=== PATIENT | female | born 1965 | race Caucasian/White ===

== ENCOUNTER 2019-02-05 15:37 | Outpatient (REF) | payer OTHER, SELFPAY ==
--- NOTE | 2019-02-05 14:30 | PAPFT_PTH ---
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
[2019-02-13 19:26] LABS: HPV High Risk type 16, PCR Negative (Negative); HPV High Risk type 18, PCR Negative (Negative); HPV other High Risk types, PCR Negative (Negative); Specimen Source VAGINAL
== END 2019-02-05 15:57 ==
LOC: LBN 15:37
PROVIDERS: PCP Family Medicine; Visit Provider Nurse Practitioner Family
DX: Z12.4 Encounter for screening for malignant neoplasm of cervix (principal); Z11.51 Encounter for screening for human papillomavirus (HPV); Z90.711 Acquired absence of uterus with remaining cervical stump
CPT/HCPCS: 87624; 88142

== ENCOUNTER 2019-03-18 12:21 | Outpatient (REF) | payer OTHER, SELFPAY ==
--- NOTE | 2019-03-18 10:00 | SKI_PTH ---
PATIENT: Paula Portillo LOC: [facility] U#:[id number] AGE/SX: 54/F ROOM: RE03/18/[address]: Lexii Ruiz APRN : 1965 BED: DIS: 03/18/2019 SPEC #: [id number] RECD: 03/18/19 12:56 STATUS: DANIELA REJackson #: [id number] [place]: 03/18/19 10:[address]: Lexii Ruiz DEPT: Surgical Specimen RECD BY: Divya Campbell Tissues: 1 - SKIN BIOPSY(SHAVE/PUNCH) Procedures: SKIN LEVEL 4 Comments: [id number]
== END 2019-03-18 12:41 ==
LOC: LBN 12:21
PROVIDERS: PCP Family Medicine
DX: L91.0 Hypertrophic scar (principal)
CPT/HCPCS: 88305

== ENCOUNTER 2019-03-19 00:37 | Outpatient (CLI) | payer OTHER, SELFPAY ==
--- NOTE | 2019-03-19 13:54 | DI.MAMMO_ITS ---
SYMPTOMS/DIAGNOSIS: PERSONAL HX BREAST CA, SCREENING, Z12.31 MAMMOGRAM: Mammograms were interpreted according to the usual protocol including computer analysis with CAD system, tomosynthesis and C view imaging. Comparison with prior examinations. The breast is status post left mastectomy. Breast density A. No suspicious masses or microcalcifications are seen. There has been no significant change compared to the prior examinations. IMPRESSION: No evidence for malignancy. Yearly mammography is recommended. Category I. The findings were discussed with the patient on the date of the examination. SA ASSESSMENT OF FINDINGS: Negative. Category 1. Patient will receive a letter notifying them of these results. BI-RAD category A. The breasts are almost entirely fatty.
== END 2019-03-19 00:57 ==
PROVIDERS: PCP Family Medicine; Visit Provider Nurse Practitioner Family
DX: Z12.31 Encounter for screening mammogram for malignant neoplasm of breast (principal); Z85.3 Personal history of malignant neoplasm of breast; Z90.12 Acquired absence of left breast and nipple
CPT/HCPCS: 77063; 77067

== ENCOUNTER 2019-03-20 01:34 | Outpatient (CLI) | payer OTHER, SELFPAY ==
[2019-03-20 10:31] LABS: ALT 25 U/L (12-78); AST 15 U/L (15-37); Albumin 3.8 g/dL (3.4-5.0); Alkaline Phosphatase 115 U/L (46-116); BUN 16 mg/dL (7-18); Bilirubin, Total 0.3 mg/dL (0.2-1.0); CREATININE 0.82 mg/dL (0.55-1.02); Calcium 9.1 mg/dL (8.5-10.1); Calculated LDL 167 mg/dL; Chloride 104 mmol/L (98-107); Cholesterol 230 mg/dL (50-200); Glucose 106 mg/dL (70-100); HDL Cholesterol 33 mg/dL (40-60); Potassium 4.2 mmol/L (3.5-5.1); Sodium 141 mmol/L (136-145); Total Protein 7.5 g/dL (6.4-8.2); Triglyceride 152 mg/dL (30-150)
== END 2019-03-20 01:54 ==
PROVIDERS: PCP Family Medicine
DX: E78.5 Hyperlipidemia, unspecified (principal); Z00.00 Encounter for general adult medical examination without abnormal findings
CPT/HCPCS: 36415; 80053; 80061; 83721

== ENCOUNTER 2019-08-14 10:21 | Outpatient (CLI) | payer OTHER, SELFPAY ==
--- NOTE | 2019-08-14 10:22 | DI.RAD_ITS ---
EXAM: XR ELBOW RT COMPLETE INDICATION: pain. COMPARISON: No exams were available for comparison TECHNIQUE: 2D digital imaging was performed. FINDINGS: No fracture or joint effusion is seen. The joint spaces are well maintained. No tendon or joint spa ce calcifications are seen. IMPRESSION: Negative right elbow.
--- NOTE | 2019-08-14 10:22 | DI.RAD_ITS ---
EXAM: XR FOREARM RT INDICATION: pain. COMPARISON: No exams were available for comparison TECHNIQUE: 2D digital imaging was performed. FINDINGS: No fracture or dislocation is seen. The wrist and elbow are unremarkable as visualized. IMPRESSION: Negative right forearm.
== END 2019-08-14 10:41 ==
PROVIDERS: PCP Family Medicine; Visit Provider Orthopaedic Surgery
DX: M79.631 Pain in right forearm (principal); M25.521 Pain in right elbow
CPT/HCPCS: 73080; 73090

== ENCOUNTER 2019-10-25 04:24 | Outpatient (CLI) | payer OTHER, SELFPAY ==
--- NOTE | 2019-10-25 11:15 | DI.RAD_ITS ---
EXAM: XR RIBS LT W PA LAT CHEST INDICATION: palpable tender area L anterior chest, rib 1-2, R07.89 CHEST PAIN, Z85.3. COMPARISON: CHEST 2 VIEWS PA,LAT from 05/13/2014 TECHNIQUE: 2D digital imaging was performed. FINDINGS: The heart size is normal. The lungs appear clear. No pneumothorax is seen. Left axillary clips are noted. No rib fracture is identified. There is no gross evidence of a lytic or blastic lesion. Th e spine shows no evidence of compression fractures. There are mild degenerative changes of AC joint glenoid IMPRESSION: No acute abnormality. DATA REPOSITORY: RADIATION DOSE DELIVERED:
== END 2019-10-25 04:44 ==
DX: R07.89 Other chest pain (principal); Z85.3 Personal history of malignant neoplasm of breast
CPT/HCPCS: 71046; 71100

== ENCOUNTER 2020-03-31 01:39 | Outpatient (CLI) | payer OTHER, SELFPAY ==
[2020-03-31 08:49] LABS: Hemoglobin A1C 5.8 % (3.8-5.6)
[2020-03-31 09:25] LABS: ALT 24 U/L (14-59); AST 16 U/L (15-37); Albumin 3.9 g/dL (3.4-5.0); Alkaline Phosphatase 93 U/L (46-116); Anion Gap 10.5 mmol/L (3-11); BUN 16 mg/dL (7-18); Bilirubin, Total 0.3 mg/dL (0.2-1.0); CO2 26.5 mmol/L (21.0-32.0); CREATININE 0.83 mg/dL (0.55-1.02); Calculated LDL 153 mg/dL (<100); Chloride 106 mmol/L (98-107); Cholesterol 217 mg/dL (<200); Glucose 94 mg/dL (74-106); HDL Cholesterol 41 mg/dL (40-60); Potassium 4.1 mmol/L (3.5-5.1); Sodium 143 mmol/L (136-145); Total Protein 7.2 g/dL (6.4-8.2); Triglyceride 119 mg/dL (<150)
== END 2020-03-31 01:59 ==
DX: E03.9 Hypothyroidism, unspecified (principal); F32.9 Major depressive disorder, single episode, unspecified; R03.0 Elevated blood-pressure reading, without diagnosis of hypertension; R63.8 Other symptoms and signs concerning food and fluid intake; E78.5 Hyperlipidemia, unspecified
CPT/HCPCS: 36415; 80053; 80061; 83036

== ENCOUNTER 2020-05-01 04:03 | Outpatient (CLI) | payer OTHER, SELFPAY ==
--- NOTE | 2020-05-01 13:43 | DI.MAMMO_ITS ---
EXAM: MG MAMMO SCREENING 60 MIN DUR CLINICAL HISTORY: breast cancer screening, HX BREAST CA, Z85.3, Z12.39 TECHNIQUE: Bilateral full field digital CC and MLO mammographic images were obtained with 3D tomosyn thesis and utilizing computer aided detection (CAD). COMPARISON: Available for comparison. FINDINGS: Patient is status post left mastectomy. Masses/Architectural Distortion: None seen. Stable asymmetric breast tissue in the upper-outer quadra nt of the right breast. Microcalcifications: No suspicious pleomorphic-type are seen. Skin Thickening/Nipple Retraction: None. IMPRESSION: 1. No significant interval change with no specific features of malignancy noted. 2. Unless there is more urgent need, screening mammography is recommended, as per [employer] guidelines. BI-RADS Category 2 - Benign Findings Breast Density - Category B - Scattered areas of fibroglandular density A negative radiographic report should not delay biopsy if a dominant or clinically suspicious mass is present. Up to ten percent of cancers are not identified on mammography. A negative report may reinforce clinical impression. Adenosis and dense breasts may obscure an underlying neoplasm. False positive reports average 6 to 10%. Patient will receive a letter notifying them of these results.
== END 2020-05-01 04:23 ==
DX: Z12.31 Encounter for screening mammogram for malignant neoplasm of breast (principal); Z85.3 Personal history of malignant neoplasm of breast
CPT/HCPCS: 77063; 77067

== ENCOUNTER 2020-05-22 09:07 | Day surgery (SDC) | payer OTHER, SELFPAY ==
[2020-05-22 08:52] VITALS: BP 116/82; PULSE 74; RESP 16; TEMP 36.2; O2SAT 98
[2020-05-22] MEDS: Lactated Ringers 1,000 ML 80 ML IV (09:44)
--- NOTE | 2020-05-22 10:26 | W.PM.DSUDISC ---
Discharge Plan Disposition Patient Disposition: HOME Condition: Good Discharge Details Reason For Visit: Colonoscopy Attending Provider: Dorita Pastrana Primary Care Provider: Lexii Ruiz Home Meds and New Rx's Prescriptions: Continued hydrochlorothiazide 25 mg tablet 25 mg PO QAM Qty: 30 RF: 2 Discharge Instructions Additional Instructions: Findings: Four small colon polyps were removed. My office will send a letter with biopsy results. Follow up: Plan for colonoscopy in 3-5 years depending on the biopsy results. Please call if you develop: fevers >101.5 Nausea or Vomiting Abdominal pain that is not transient DAY SURGERY UNIT POST COLONOSCOPY INSTRUCTIONS 1. Because there will be medication in your system for the next 24 hours, you may feel a little sleepy. Your coordination will be affected. Therefore: a. Do not drive or operate dangerous equipment for 24 hours. b. Do not drink alcohol beverages for 24 hours (not even beer). c. Plan to go home and rest for the day. 2. Generally there are no restrictions on your activity after a day or so has gone by, but you may feel a bit fatigued for a few days. 3 After you arrive home you may have a light meal and return to a normal diet as you can tolerate it without feeling sick to your stomach. 4. After surgery, you may feel pain or discomfort. This should be only transient, but if it persists please contact your doctor. 5. If there are any questions regarding the findings of your procedure, please feel free to contact your doctor. 6. If you are unable to contact your doctor with a problem, contact the hospital at [phone]. 7. Continue all your regular medications unless directed otherwise. I understand the above instructions and have no questions. Signature of Patient or Responsible Adult Escort Date/Time Name of Responsible Adult Escort Signature of Nurse Date/Time Activity:: Activity as Tolerated Diet:: As Tolerated Discharge Orders Discharge Orders: Discharge Order (Routine); Ordered 05/22/20 Ordered By: Dorita Pastrana DS: Diagnosis Discharge Diagnosis (1) Colon polyps: Status: Acute
--- NOTE | 2020-05-22 10:27 | W.COLOREPORT ---
Date of service: 05/22/20 Time of Service: 11:23 Colonoscopy Report Date of procedure: 05/22/20 Pre-op diagnosis general: History of colon polyps Post-op diagnosis procedure note: other (Colon polyps) Procedure: Colonoscopy with cold forceps and snare polypectomy Surgeon: Dorita Pastrana Anesthesia proc note operative: MAC Indications: This 55 year old woman had a tubular adenoma removed in 2014 and presents for follow up colonoscopy. No symptoms. FH unknown due to adoption. Procedure Description: The patient was placed in the left Benjamin position. Propofol was titrated to sedation. Digital rectal examination revealed no abnormalities. The scope was advanced to the cecum without difficulty. The ileocecal valve and appendiceal orifice were clearly identified. The prep was good. A diminuitive polyp near the appendiceal orifice was removed with the cold forceps. The scope was slowly withdrawn over the course of greater than 6 minutes with a less than 1cm polyp in the ascending colon removed with the cold forceps. No abnormalities were seen in the transverse or descending colon. In the sigmoid a less than 1cm polyp was removed with the hot snare. A flat less than 1cm polyp was removed from the rectum. The patient tolerated the procedure well and was stable to recovery. A follow up colonoscopy is indicated in 3-5 years pending biopsy results.
--- NOTE | 2020-05-22 10:48 | BOWEL_PTH ---
PATIENT: Paula Portillo LOC: [facility] U#:[id number] AGE/SX: 55/F ROOM: RE05/22/[address]: Dorita Pastrana MD : 1965 BED: DIS: 05/22/2020 SPEC #: [id number] RECD: 05/22/20 12:31 STATUS: DANIELA REJackson #: [id number] [place]: 05/22/20 10:[address]: Dorita Pastrana DEPT: Surgical Specimen RECD BY: Adeola Perkins ENTERED: 05/22/20 12:32 SP TYPE: Bowel OTHR DR: Lexii Ruiz APRN Tissues: 1 - BIOPSY BOWEL 2 - BIOPSY BOWEL 3 - BIOPSY BOWEL 4 - BIOPSY BOWEL Procedures: GROSS AND MICRO LEVEL 4 Comments: [id number]
[2020-05-22 11:50] VITALS: BP 126/76; PULSE 72; RESP 16; TEMP 36.6; O2SAT 96
== END 2020-05-22 12:07 | disposition home or self-care (01) ==
PROVIDERS: Visit Provider Surgery
PROC: 0DJD8ZZ Inspection of Lower Intestinal Tract, Via Natural or Artificial Opening Endoscopic (ICD-10-PCS; CPT 45378; principal; 2020-05-22 10:15)
DX: Z12.11 Encounter for screening for malignant neoplasm of colon (principal); D12.2 Benign neoplasm of ascending colon; D12.0 Benign neoplasm of cecum; D12.5 Benign neoplasm of sigmoid colon; D12.8 Benign neoplasm of rectum; Z86.010 Personal history of colon polyps; I10 Essential (primary) hypertension
CPT/HCPCS: 45385; 45380; 88305; J2001

== ENCOUNTER 2020-12-14 02:46 | Outpatient (CLI) | payer OTHER, SELFPAY ==
[2020-12-14 11:27] LABS: Source Nasal/Nares
[2020-12-14 13:23] LABS: COVID-19 PCR Negative (Negative)
== END 2020-12-14 02:47 | disposition home or self-care (01) ==
LOC: LBO 02:47
PROVIDERS: Visit Provider Surgery
DX: Z20.822 Contact with and (suspected) exposure to COVID-19 (principal); Z01.818 Encounter for other preprocedural examination
CPT/HCPCS: 87635

== ENCOUNTER 2020-12-15 12:26 | Day surgery (SDC) | payer OTHER, SELFPAY ==
[2020-12-15 12:36] VITALS: BP 106/71; PULSE 79; RESP 16; TEMP 36.6; O2SAT 98
[2020-12-15] MEDS: Lactated Ringers 1,000 ML 80 ML IV (13:00)
--- NOTE | 2020-12-15 14:30 | BOWEL_PTH ---
PATIENT: Paula Portillo LOC: [facility] U#:[id number] AGE/SX: 55/F ROOM: RE12/15/[address]: Marielena Morgan : 1965 BED: DIS: 12/15/2020 SPEC #: [id number] RECD: 12/15/20 18:20 STATUS: DANIELA RE #: [id number] [place]: 12/15/20 14:[address]: Marielena Morgan DEPT: Surgical Specimen RECD BY: Adeola Perkins ENTERED: 12/15/20 18:21 SP TYPE: Bowel OTHR DR: Lexii Ruiz APRN Tissues: 1 - BIOPSY BOWEL 2 - BIOPSY BOWEL Procedures: GROSS AND MICRO LEVEL 4 Comments: [id number]
--- NOTE | 2020-12-15 15:06 | W.COLOREPORT ---
Date of service: 12/15/20 Time of Service: 15:06 Colonoscopy Report Date of procedure: 12/15/20 Pre-op diagnosis general: serrrated polyps/CIS of polyp Post-op diagnosis procedure note: same Anesthesia Type: General:No Airway Estimated blood loss (mL): 2 Pathology: other Complications: None Disposition: same day Prep: Miralax/Dulcolax Retraction Time: 20 Procedure Description: After informed consent was obtained the patient was taken to the procedure room and placed in a left decubitous position. Monitors were applied and a time out was done. The patients name, date of , procedure, allergies to medications and metal in their body was reviewed. The patient was then sedated. Once sedated and comfortable a rectal exam was done. External exam was normal. Internal exam revealed a normal sphincter tone and no palpable masses. The scope was then introduced and retrofelexed. No internal hemorrhoids were identified. The scope was then advanced to the cecum w/out difficulty. The TI and appendiceal orifice were identified. The prep was good. The scope was then slowly retracted over 20 minutes back into the rectum. The scope was removed and the patient was woken up and taken back to Same day surgery in stable condition. She had x2 polypts that were removed w/ a hot polypectomy forcept. Both of these had the appearance of adenomas under NBI. One was at 70cm. This is removed w/ a hot forcept in multiple bites, all specimen retrieved ad no bleeding noted. The second polyp was at 40cm. This was flat and removed w/ a hot forcept. An Endo- clip was placed across the defect. Minor diverituclar Dx noted, this is confined to the sigmoid colon. No sign of recurrent polyps in rectum. The scope was removed and the patient was woken up and taken back to Same day surgery in stable condition. The patient tolerated the procedure well and there were no immediate complications. Follow up: The patient should follow up in 6m, unless they develop changes in bowel habits or other new gastrointestinal complaints.
[2020-12-15 15:29] VITALS: BP 108/64; PULSE 64; RESP 16; TEMP 36.1; O2SAT 99
--- NOTE | 2020-12-15 15:48 | W.PM.DSUDISC ---
Discharge Plan Disposition Patient Disposition: HOME Condition: Good Discharge Details Reason For Visit: colon scope Attending Provider: Marielena Morgan Primary Care Provider: Lexii Ruiz Home Meds and New Rx's Prescriptions: Continued hydrochlorothiazide 25 mg tablet 25 mg PO QAM Qty: 90 RF: 4 losartan 50 mg tablet 50 mg PO BID Qty: 180 RF: 3 Discontinued bisacodyl [Dulcolax (bisacodyl)] 5 mg tablet,delayed release (DR/EC) 5 mg PO ONCE Qty: 4 RF: 0 polyethylene glycol 3350 17 gram/dose powder 238 g PO ONCE Qty: 238 RF: 0 Discharge Instructions Additional Instructions: Findings: x2 new polyps -No signs of recurrence of the polyp that had cancer in it. -will send a letter in 3 wks w/ results of the polyp pathology -no Advil/aspirin/Naprosyn for 5 days. Follow up: repeat colon scope May 2021 Please call if you develop: fevers >101.5 Nausea or Vomiting Abdominal pain that is not transient DAY SURGERY UNIT POST COLONOSCOPY INSTRUCTIONS 1. Because there will be medication in your system for the next 24 hours, you may feel a little sleepy. Your coordination will be affected. Therefore: a. Do not drive or operate dangerous equipment for 24 hours. b. Do not drink alcohol beverages for 24 hours (not even beer). c. Plan to go home and rest for the day. 2. Generally there are no restrictions on your activity after a day or so has gone by, but you may feel a bit fatigued for a few days. 3 After you arrive home you may have a light meal and return to a normal diet as you can tolerate it without feeling sick to your stomach. 4. After surgery, you may feel pain or discomfort. This should be only transient, but if it persists please contact your doctor. 5. If there are any questions regarding the findings of your procedure, please feel free to contact your doctor. 6. If you are unable to contact your doctor with a problem, contact the hospital at [phone]. 7. Continue all your regular medications unless directed otherwise. I understand the above instructions and have no questions. 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
[2020-12-15 15:51] VITALS: BP 110/68; PULSE 63; RESP 16; TEMP 36.3; O2SAT 100
== END 2020-12-15 16:10 | disposition home or self-care (01) ==
PROVIDERS: Visit Provider Surgery
PROC: 0DJD8ZZ Inspection of Lower Intestinal Tract, Via Natural or Artificial Opening Endoscopic (ICD-10-PCS; CPT 45378; principal; 2020-12-15 12:30)
DX: Z12.11 Encounter for screening for malignant neoplasm of colon (principal); D12.6 Benign neoplasm of colon, unspecified; Z86.010 Personal history of colon polyps; K57.30 Diverticulosis of large intestine without perforation or abscess without bleeding
CPT/HCPCS: 45384; 88305; J2001

== ENCOUNTER 2021-04-21 03:03 | Outpatient (CLI) | payer OTHER, SELFPAY ==
[2021-04-21 08:27] LABS: ALT 25 U/L (14-59); AST 14 U/L (15-37); Albumin 4.1 g/dL (3.4-5.0); Alkaline Phosphatase 93 U/L (46-116); Anion Gap 10.5 mmol/L (3-11); BUN 29 mg/dL (7-18); Bilirubin, Total 0.3 mg/dL (0.2-1.0); CO2 29.5 mmol/L (21.0-32.0); CREATININE 0.9 mg/dL (0.55-1.02); Calcium 9.5 mg/dL (8.5-10.1); Calculated LDL 163 mg/dL (<100); Chloride 101 mmol/L (98-107); Cholesterol 223 mg/dL (<200); Glucose 101 mg/dL (74-106); HDL Cholesterol 44 mg/dL (40-60); Potassium 3.7 mmol/L (3.5-5.1); Sodium 141 mmol/L (136-145); Total Protein 7.6 g/dL (6.4-8.2); Triglyceride 83 mg/dL (<150)
== END 2021-04-21 03:04 | disposition home or self-care (01) ==
LOC: LBO 03:03
DX: Z00.00 Encounter for general adult medical examination without abnormal findings; Z13.220 Encounter for screening for lipoid disorders
CPT/HCPCS: 36415; 80053; 80061

== ENCOUNTER 2021-05-27 02:46 | Outpatient (CLI) | payer OTHER, SELFPAY ==
--- NOTE | 2021-05-27 07:45 | DI.MAMMO_ITS ---
Exam(s) MG MAMMO SCREENING 60 MIN DUR EXAM: MG MAMMO SCREENING 60 MIN DUR CLINICAL HISTORY: breast cancer screening,personal h/o breast ca,z85.3,z12.31. TECHNIQUE: Craniocaudal and mediolateral oblique Full Field Digital Mammography views of the right b reast with Computer Aided Diagnosis followed by Tomosynthesis. COMPARISON: Priors available for comparison. FINDINGS: Mammography/Tomosynthesis: The patient is status post left mastectomy. Masses/Architectural Distortion: None seen. Microcalcifictions: No suspicious pleomorphic-type are seen. Skin Thickening/Nipple Retraction: None. IMPRESSION: 1. No evidence of malignancy is noted. 2. Unless there is more urgent need, follow-up screening mammography is recommended, as per [place] [employer] guidelines. 3. The findings were discussed with the patient on the date of the examination. BI-RADS Category 1 - Negative Breast Density - Category B - Scattered areas of fibroglandular density Breast density Category C or D implies that the patient has dense breast tissue. Dense breast tissue can make it harder to find cancer on a mammogram. Dense breast tissue is also associated with an incr eased risk of breast cancer. This information about the result of the mammogram report was provided to the patient to raise their awareness. Use this report when you speak with the patient about their risks for breast cancer, which includes their family history. At that time, you may recommend additional screening tests (Ultrasoun d or MRI) as these tests may add significant information. A negative radiographic report should not delay biopsy if a dominant or clinically suspicious mass is present. Up to ten percent of cancers are not identified on mammography. A negative report may reinforce clinical impression. Adenosis and dense breasts may obscure an underlying neoplasm. False positive reports average 6 to 10%. Patient will receive a letter notifying them of these results.
--- NOTE | 2021-05-27 09:57 | DI.RAD_ITS ---
Exam(s) XR THUMB RT EXAM: XR THUMB RT CLINICAL HISTORY: right thumb pain and swelling,m79.644. TECHNIQUE: 2D digital imaging was performed of the right finger. Three views were obtained. PA/AP, oblique, and lateral views were obtained. COMPARISON: No exams were available for comparison FINDINGS: BONES: There is a 1.4 mm linear density in the dorsal soft tissues adjacent to the head of the proxim al phalanx of the thumb. This may represent a small avulsed fracture fragment. It is of indetermina te acuity. No other evidence to suggest an acute or healing fracture or dislocation is seen. No bon y destructive lesion is seen. JOINTS: No dislocation present. SOFT TISSUE: Normal. IMPRESSION: 1.4 mm linear density in the soft tissues dorsal to the head of the proximal phalanx of the thumb. T his may represent an avulsed fracture fragment. It is of indeterminate acuity. Please correlate wit h the patient's site of pain. DATA REPOSITORY: RADIATION DOSE DELIVERED:
== END 2021-05-27 03:06 ==
DX: Z12.31 Encounter for screening mammogram for malignant neoplasm of breast (principal); Z85.3 Personal history of malignant neoplasm of breast; M79.644 Pain in right finger(s); M79.9 Soft tissue disorder, unspecified
CPT/HCPCS: 77063; 77067; 73140

== ENCOUNTER 2021-06-15 02:24 | Outpatient (CLI) | payer OTHER, SELFPAY ==
[2021-06-15 14:22] LABS: Source Nasal/Nares
[2021-06-15 18:04] LABS: COVID-19 PCR Negative (Negative)
== END 2021-06-15 02:25 | disposition home or self-care (01) ==
LOC: LBO 02:24
PROVIDERS: Visit Provider Surgery
DX: Z20.822 Contact with and (suspected) exposure to COVID-19 (principal); Z01.818 Encounter for other preprocedural examination
CPT/HCPCS: 87635

== ENCOUNTER 2021-06-18 11:03 | Day surgery (SDC) | payer OTHER, SELFPAY ==
--- NOTE | 2021-06-17 13:35 | W.COLOREPORT ---
Colonoscopy Report Date of procedure: 06/18/21 Pre-op diagnosis general: serrated adenoma 70/40 Post-op diagnosis procedure note: other (moderate diverticula ) Surgeon: Marielena Morgan Anesthesia Type: General:No Airway Estimated blood loss (mL): 0 Pathology: none sent Complications: None Disposition: same day Prep: Miralax/Dulcolax Retraction Time: 7 mins Procedure Description: After informed consent was obtained the patient was taken to the procedure room and placed in a left decubitous position. Monitors were applied and a time out was done. The patients name, date of , procedure, allergies to medications and metal in their body was reviewed. The patient was then sedated. Once sedated and comfortable a rectal exam was done. External exam was normal. Internal exam revealed a normal sphincter tone and no palpable masses. The scope was then introduced and retrofelexed. no internal hemorrhoids were identified. The scope was then advanced to the cecum w/out difficulty. The TI and appendiceal orifice were identified. The prep was good. The scope was then slowly retracted over 7 minutes back into the rectum. There are no polyps visualized today. She does have a minor diverticular disease confined to the sigmoid colon. There is no signs of bleeding or infection. At 40 cm she still has a clip across the defect from the previous polypectomy. There is no signs of any recurrent polyp disease visualized today. The scope was removed and the patient was woken up and taken back to Same day surgery in stable condition. The patient tolerated the procedure well and there were no immediate complications. Follow up: The patient should follow up in 2 years unless they develop changes in bowel habits or other new gastrointestinal complaints.
--- NOTE | 2021-06-17 13:37 | PDOC.DSDIS_ITS ---
Discharge Plan Disposition Patient Disposition: HOME Condition: Good Discharge Details Reason For Visit: colon scope Attending Provider: Marielena Morgan Primary Care Provider: Lexii Ruiz Home Meds and New Rx's Prescriptions: No Action hydrochlorothiazide 25 mg tablet 25 mg PO QAM Qty: 90 RF: 4 losartan 50 mg tablet 50 mg PO BID Qty: 180 RF: 3 Discharge Instructions Additional Instructions: DSU Colonoscopy Post- Op Instructions Instructions for Everyone who is given Anesthesia: For your safety, please do the following for the next twenty-four (24) hours: *Do Not operate a motor vehicle (car, truck, motorcycle, etc.) *Do Not drink alcoholic beverages or use any recreational drugs for the first 24 hours or while taking pain medications. The medications in your body may have a reaction that can be dangerous. *Do Not make any important decisions or sign any important papers. Findings:no polyps diverticula- see handout Follow up:Repeat scope in 2 yrs time. 1. No lifting over 20 pounds or strenuous activity for the first 24 hours after your procedure. After 24 hours there are no restrictions on your activity but you may feel fatigued for a few days. 2. After you arrive home you may have a light meal and return to your normal diet as you can tolerate it without feeling sick to your stomach. 3. You may have a bloated, gaseous feeling in your belly (abdomen) after a colonoscopy. Passing gas and belching will help. Walking or lying down on your left side with your knees flexed may relieve the discomfort. Call the office at [phone] (Office) or [phone] (Hospital) right away if you notice any of the following: a.Vomiting of blood or ?coffee ground stools?. b.Rectal bleeding 1Tbsp, blood clots or continuous bleeding. c.Severe belly (abdominal) pain. d.A hard distended belly (abdomen) and an inability to pass gas. 4. Please don?t expect to have a normal BM (bowel movement) for 2-3 days after your procedure. 5. If there are questions regarding the findings of your procedure, please contact your doctor 6. If you are unable to contact your doctor with a problem, contact the hospital at [phone]. 7. Continue all your regular medications unless directed otherwise. I understand the above instructions and have no questions. Signature of Patient or Adult Escort Name of Responsible Adult Escort Signature of Nurse Date/Time Activity:: see above Diet:: see above Discharge Orders Discharge Orders: Discharge Order (Routine); Ordered 06/17/21 Ordered By: Marielena Morgan DS: Diagnosis Discharge Diagnosis (1) Serrated adenoma of colon: Status: Acute
[2021-06-18 11:16] VITALS: BP 119/86; PULSE 70; RESP 16; TEMP 36.7; O2SAT 98
--- NOTE | 2021-06-18 11:25 | ANES.PREOP_ITS ---
General Info Date of Service Date Performed: 06/18/21 Height: 5 ft 1 in Weight: 71.7 kg Body Mass Index (BMI): 29.8 Surgical Procedure: Operation Date: 06/18/21 11:35 Proposed Procedures Side Surgeon p Colonoscopy Marielena Morgan, Meds Allergies and Home Medications Allergies Allergy/AdvReac Type Severity Reaction Status Date / Time No Known Drug Allergies Allergy Verified 06/18/21 11:15 Home Medication Medication Instructions Recorded hydrochlorothiazide 25 mg tablet 25 mg PO QAM #90 tab 10/20/20 losartan 50 mg tablet 50 mg PO BID #180 tab 10/25/20 Current Visit Medications: Current Medications Generic Name Dose Route Start Last Admin Trade Name Freq PRN Reason Stop Dose Admin Ringer's Solution 1,000 mls @ 80 mls/hr 06/18/21 06:00 IV 07/17/21 23:59 INFUSION ELY IV Miscellaneous Supplies 1 each 06/18/21 06:00 Iv Access IV 07/17/21 23:59 DIRECTED ELY Sodium Chloride 0 ml 06/18/21 06:00 Normal Saline Flush 10 Ml Syr IV 07/17/21 23:59 PRN PRN Sodium Chloride 0 ml 06/18/21 06:00 Normal Saline 10 Ml Vial IJ 07/17/21 23:59 DIRECTED PRN Sterile Water 0 ml 06/18/21 06:00 Water,Injection,Sterile 10 Ml Vial IJ 07/17/21 23:59 DIRECTED PRN PFSH Active Problems Active Problems: Problem Status Onset Code Internal derangement of elbow M24.9 Colon polyps K63.5 Serrated adenoma of colon ~11/2020 D12.6 Tubular adenoma ~05/22/20 D36.9 Screening cholesterol level Z13.220 History of cervical dysplasia Z87.410 GERD (gastroesophageal reflux disease) K21.9 Pain, dental K08.89 Essential hypertension I10 Hyperlipidemia E78.5 Depression F32.9 Costochondritis M94.0 Tear of right biceps muscle 08/11/19 S46.211A Increased body mass index (BMI) R63.8 Skin lesion L98.9 Acquired absence of both cervix and uterus 07/13/15 Z90.710 Personal history of breast cancer 12/29/16 Z85.3 Tubular adenoma 07/28/15 D36.9 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 F/U recommendations are HPV Q2 years and PAP Q1 year Surgical History Surgical History Acquired absence of both cervix and uterus (07/13/15) 2004 - Bilateral oophrectomy after recurrance of breast Ca 2010 Hyst for persistent KIMMIE II Breast, Lumpectomy (~1999) Left - breast Ca Breast, Mastectomy (~2003) with reconstruction after recurrence of L Breast Ca Cryocautery ablation of VAIN II 06/2015 History of colonoscopy (~12/15/20) Hx of appendectomy Hysterectomy, Laproscopic (~2010) for abn paps Oophrectomy, Both (~2004) prophylactic after Breast Ca Tobacco Smoking/Tobacco Use Status: Never Passive smoking exposure: Yes Second hand exposure: Yes Alcohol Alcohol Intake: current Alcohol intake frequency: a few times a month Alcohol type: hard liquor Substance Use Substance use: Never Substance use type: does not use Prental History History 3 Para 3 Hx # Term Pregnancies Multiple births Hx # Pregnancies Ectopic pregnancies AB induced Hx Number of Living Children AB spontaneous Vital Signs and Lab Results Vital Signs Most Recent Vital Signs in EMR: Most Recent Vital Signs Temp Pulse Resp BP Pulse Ox 36.7 C 70 16 119/86 98 06/18/21 11:16 06/18/21 11:16 06/18/21 11:16 06/18/21 11:16 06/18/21 11:16 Lab Results Blood Type / Crossmatch: No Data to Display Complete Blood Count: No Data to Display Complete Metabolic Panel: No Data to Display Liver Function Panel: No Data to Display Coagulation Panel: No Data to Display Cardiac Panel: No Data to Display Arterial Blood Gas: No Data to Display Venous Blood Gas: No Data to Display Pancreas Panel: No Data to Display Thyroid Panel: No Data to Display Infectious Disease: Coronavirus (COVID-19)(PCR) Negative (Negative) 06/15/21 11:18 06/15/21 Coronavirus 2019 Source Nasal/Nares 06/15/21 11:18 06/15/21 Blood Cultures: No Data to Display Toxicology Panel: No Data to Display Anesthesia Assessment and Plan Anesthesia History Personal History: No History of Anesthesia Complications Family History: No Family History of Anesthesia Complications Exercise Tolerance Exercise Tolerance: Metabolic Equivalents>4 Pertinent Negatives Pertinent Negatives: No Symptoms of GERD, No Major Cardiovascular Symptoms or Complaints, No Major Pulmonary Symptoms or Complaints and No History of CVA/TIA Cardiac & Pulmonary Exam Cardiac Exam: Normal S1/S2 Heart Sounds Pulmonary Exam: Clear Bilateral Breath Sounds Airway Exam Known Difficult Airway: No Mallampati Class: 2 Mouth Opening: Normal (> 3cm) Thyromental Distance: Greater than 3 cm Neck Range of Motion: Full ROM Neck Circumference: Normal Teeth Condition: Normal Dentition ASA Classification ASA Score: ASA 2 Emergency Case?: No NPO Status NPO Status: NPO Clears >2 hours, Solids >8 hours Anesthesia Plan Resuscitation Status: Full Code Anesthesia Technique: General Anesthesia Airway Planned: Natural Airway Monitors Used: Standard Monitors
[2021-06-18 11:31] VITALS: BMI 29.8
[2021-06-18] MEDS: Lactated Ringers 1,000 ML 80 ML IV (11:34)
[2021-06-18 12:14] VITALS: BP 89/70; PULSE 81; RESP 18; TEMP 36; O2SAT 97
--- NOTE | 2021-06-18 12:40 | W.ANESPOSTOP ---
Postoperative Evaluation Date, Time and Location Date Performed: 06/18/21 Time Performed: 12:15 Patient Location: Day Surgery Unit Vital Signs Most Recent Imported Vital Signs: Most Recent Vital Signs Temp Pulse Resp BP Pulse Ox 36.0 C L 81 18 89/70 L 97 06/18/21 12:14 06/18/21 12:14 06/18/21 12:14 06/18/21 12:14 06/18/21 12:14 Pain Score Most Recent Pain Score: Most Recent Pain Score Pain Level 0 06/18/21 12:14 Assessment Mental Status: Awake (Alert & Oriented to Patient Baseline) Airway and Respiratory Function: Patent airway with normal (patient baseline) respiratory exam Cardiovascular Function: Hemodynamically Stable Hydration Status: Adequately Hydrated Nausea & Vomiting: No Nausea or Vomiting Pain: Pt. Denies Any Pain Peripheral Nerve Block: Patient did not receive a nerve block
[2021-06-18 12:43] VITALS: BP 135/83; PULSE 65; RESP 16; TEMP 36.3; O2SAT 97
== END 2021-06-18 13:07 | disposition home or self-care (01) ==
PROVIDERS: Visit Provider Surgery
PROC: 0DJD8ZZ Inspection of Lower Intestinal Tract, Via Natural or Artificial Opening Endoscopic (ICD-10-PCS; CPT 45378; principal; 2021-06-18 11:30)
DX: Z09 Encounter for follow-up examination after completed treatment for conditions other than malignant neoplasm (principal); Z86.010 Personal history of colon polyps; K57.30 Diverticulosis of large intestine without perforation or abscess without bleeding; K21.9 Gastro-esophageal reflux disease without esophagitis; Z85.3 Personal history of malignant neoplasm of breast
CPT/HCPCS: 45378; J2001

== ENCOUNTER 2021-10-19 15:24 | Outpatient (CLI) | payer OTHER, SELFPAY ==
--- NOTE | 2021-10-19 14:29 | DI.RAD_ITS ---
Exam(s) XR RIBS LT W PA LAT CHEST EXAM: XR RIBS LT W PA LAT CHEST CLINICAL HISTORY: Rib pain, pleurodynia, s/p fall, R07.81, W19.XXXA TECHNIQUE: COMPARISON: CR XR RIBS LT W PA LAT CHEST from 10/25/2019 FINDINGS: PA and lateral chest and 4 additional views of the left ribs were obtained. There are multiple surgi eder clips in the left axilla. The lungs are clear. No pleural effusion seen. No pneumothorax. No rib fracture is seen. IMPRESSION: No evidence of acute process. RADIATION DOSE DELIVERED: Total DLP
== END 2021-10-19 15:44 ==
PROVIDERS: Visit Provider Nurse Practitioner
DX: R07.81 Pleurodynia (principal); W19.XXXA Unspecified fall, initial encounter
CPT/HCPCS: 71046; 71100

== ENCOUNTER 2022-05-17 22:29 | Outpatient (REF) | payer OTHER, SELFPAY ==
[2022-05-19 14:41] LABS: Chlamydia Result Negative (Negative); GC Result Negative (Negative)
== END 2022-05-17 22:30 | disposition home or self-care (01) ==
LOC: LBN 22:29
PROVIDERS: Visit Provider Obstetrics & Gynecology
DX: Z11.3 Encounter for screening for infections with a predominantly sexual mode of transmission (principal)
CPT/HCPCS: 87491; 87591

== ENCOUNTER 2022-11-22 17:25 | Outpatient (REF) | payer OTHER, SELFPAY ==
[2022-11-22 13:02] LABS: Anion Gap 6.5 mmol/L (3-11); BUN 12 mg/dL (7-18); CO2 29.5 mmol/L (21.0-32.0); CREATININE 0.9 mg/dL (0.55-1.02); Chloride 107 mmol/L (98-107); Estimated GFR 74.57 (mL/min/1.73m2); Glucose 103 mg/dL (74-106); Potassium 4.2 mmol/L (3.5-5.1); Sodium 143 mmol/L (136-145)
== END 2022-11-22 17:26 | disposition home or self-care (01) ==
LOC: LBN 17:25
PROVIDERS: PCP Nurse Practitioner Family; Visit Provider Nurse Practitioner Family
DX: I10 Essential (primary) hypertension (principal)
CPT/HCPCS: 80048

== ENCOUNTER 2022-11-30 02:01 | Outpatient (CLI) | payer OTHER, SELFPAY ==
--- NOTE | 2022-11-30 11:03 | DI.MAMMO_ITS ---
Exam(s) MG MAMMO SCREENING 60 MIN DUR EXAM: MG MAMMO SCREENING 60 MIN DUR CLINICAL HISTORY: breast cancer screening,personal h/o breast ca,z12.39,z85.3 TECHNIQUE: Right full field digital CC and MLO mammographic images were obtained with 3D tomosynthes is and utilizing computer aided detection (CAD). COMPARISON: 2014 through 2020 FINDINGS: Masses/Architectural Distortion: None seen. Microcalcifications: No suspicious pleomorphic-type are seen. Skin Thickening/Nipple Retraction: None. IMPRESSION: 1. No significant interval change with no specific features of malignancy noted. 2. Unless there is more urgent need, screening mammography is recommended, as per [place] [employer] guidelines. BI-RADS Category 1 - Negative Breast Density - Category B - Scattered areas of fibroglandular density A negative radiographic report should not delay biopsy if a dominant or clinically suspicious mass is present. Up to ten percent of cancers are not identified on mammography. A negative report may reinforce clinical impression. Adenosis and dense breasts may obscure an underlying neoplasm. False positive reports average 6 to 10%. Patient will receive a letter notifying them of these results.
== END 2022-11-30 02:21 ==
LOC: DI 02:01
PROVIDERS: PCP Nurse Practitioner Family; Visit Provider Nurse Practitioner Family
DX: Z12.31 Encounter for screening mammogram for malignant neoplasm of breast (principal); Z85.3 Personal history of malignant neoplasm of breast
CPT/HCPCS: 77063; 77067

== ENCOUNTER 2023-05-16 13:44 | Outpatient (REF) | payer OTHER, SELFPAY | END 2023-05-16 13:45 | disposition home or self-care (01) | LOC: LBN 13:44 | PROVIDERS: PCP Nurse Practitioner Family; Visit Provider Obstetrics & Gynecology | DX: R30.0 Dysuria (principal) | CPT/HCPCS: 87077; 87086; 87186 ==

== ENCOUNTER 2023-06-13 10:52 | Day surgery (SDC) | payer OTHER, SELFPAY ==
[2023-06-13 11:47] VITALS: BP 142/99; PULSE 85; RESP 16; TEMP 36.7; O2SAT 97
--- NOTE | 2023-06-13 11:57 | PDOC.DSDIS_ITS ---
Date of service: 06/13/23 Time of Service: 11:57 Discharge Plan Disposition Patient Disposition: Home Condition: Good Discharge Details Reason For Visit: colon scope Attending Provider: Marielena Morgan Primary Care Provider: Nick Petersen Home Meds and New Rx's Prescriptions: Continued losartan 50 mg tablet 50 mg PO DAILY Qty: 90 3RF hydrochlorothiazide 25 mg tablet 25 mg PO QAM Qty: 90 3RF mirtazapine 7.5 mg tablet 7.5 mg PO QHS Qty: 90 1RF Discontinued polyethylene glycol 3350 17 gram/dose powder 238 g PO ONCE Qty: 238 0RF Rx Instructions: take per colonoscopy instructions bisacodyl [Dulcolax (bisacodyl)] 5 mg tablet,delayed release (DR/EC) 5 mg PO ONCE Qty: 4 0RF Rx Instructions: take per colonoscopy instructions Discharge Instructions Additional Instructions: DSU Colonoscopy Post- Op Instructions Instructions for Everyone who is given Anesthesia: For your safety, please do the following for the next twenty-four (24) hours: *Do Not operate a motor vehicle (car, truck, motorcycle, etc.) *Do Not drink alcoholic beverages or use any recreational drugs for the first 24 hours or while taking pain medications. The medications in your body may have a reaction that can be dangerous. *Do Not make any important decisions or sign any important papers. Findings.diverticula-.Make sure you are moving your bowels on a regular basis and not straining to go to the bathroom. If you find you are having problems with constipation/straining, then we recommend you start a fiber supplement such as Metamucil, daily Follow up: My office will send you a letter in 2 to 3 weeks time with the results of the pathology and when we want you to repeat the colonoscopy. 1. No lifting over 20 pounds or strenuous activity for the first 24 hours after your procedure. After 24 hours there are no restrictions on your activity but you may feel fatigued for a few days. 2. After you arrive home you may have a light meal and return to your normal diet as you can tolerate it without feeling sick to your stomach. 3. You may have a bloated, gaseous feeling in your belly (abdomen) after a colonoscopy. Passing gas and belching will help. Walking or lying down on your left side with your knees flexed may relieve the discomfort. Call the office at [phone] (Office) or [phone] (Hospital) right away if you notice any of the following: a.Vomiting of blood or ?coffee ground stools?. b.Rectal bleeding 1Tbsp, blood clots or continuous bleeding. c.Severe belly (abdominal) pain. d.A hard distended belly (abdomen) and an inability to pass gas. 4. Please don?t expect to have a normal BM (bowel movement) for 2-3 days after your procedure. 5. If there are questions regarding the findings of your procedure, please contact your doctor 6. If you are unable to contact your doctor with a problem, contact the hospital at [phone]. 7. Continue all your regular medications unless directed otherwise. I understand the above instructions and have no questions. Signature of Patient or Adult Escort Name of Responsible Adult Escort Signature of Nurse Date/Time Starting a Fiber Supplement Dietary fiber is a plant-based nutrient that's necessary for the healthy functioning of your digestive system.? ?In addition to helping your bowels stay regular, it's also useful for maintaining optimum cholesterol and blood sugar levels as well as a healthy weight. Although it's technically a carbohydrate, i t's not the kind that can be broken down into digestible sugars by the body. Instead, fiber travels through your digestive system while bulking and softening your stool?making it easier to pass. It also helps absorb excess blood sugars and cholesterols. The [place] [employer] recommends 30 grams (g) of fiber a day for men, and 25g a day for women. Fiber is found in fruits, vegetables, legumes, and whole grains, and is an important part of the diet. But because many people find it difficult to eat the recommended quantity of 25 to 38 g per day, fiber supplementation can be extremely helpful to ease the symptoms of a variety of digestive discomforts like diarrhea and constipation. Today, many fiber supplements are found on the market containing one of three active ingredients: psyllium, methylcellulose, and polycarbophil Health Benefits If you have diarrhea, supplementing with fiber can bulk up the stool and reduce frequent urges to evacuate the bowel. If you have constipation, fiber supplements can soften your stool and speed up its movement through the colon. To understand how fiber helps relieve symptoms of both diarrhea and constipation, it's important to differentiate between soluble fiber and insoluble fiber. Soluble fiber forms a gel in your colon by absorbing water and retaining it in your stool, which makes bowel movements softer and easier to pass. Insoluble fiber bulks stool up, which also helps it move through your intestines more easily. Thus, fiber can also help you avoid hemorrhoids and anal fissures that can develop when straining to pass a bowel movement. Additionally, supplementing with fiber can be part of a treatment plan for conditions such as irritable bowel syndrome (IBS), various types of inflammatory bowel disease (IBD) like Crohn's disease and ulcerative colitis, as well as diverticulosis . Fiber increases satiety, or fullness, and is thus helpful for those looking to lose weight or maintain a healthy weight. Sufficient fiber intake has also been shown to decrease the risk of certain cancers, heart disease, and diabetes. There is also evidence that enough fiber, when combined with a diet rich in Vi tamin A, has a protective effect against food allergies. Possible Side Effects The potential side effects of fiber supplementation include: * Gas and gas pain * Abdominal bloating * Lowered blood sugar * Diarrhea or constipation (if taken in excess) * Weight loss * Lessened effectiveness of medications and vitamins (if taken at the same time as fiber) -Side effects can sometimes be minimized by starting with a small amount and slowly increasing until stools become softer and more frequent. Because of the way fiber supplements bulk up in the intestinal tract and absorb surrounding materials, they can interfere with the body's ability to assimilate medications, vitamins, and nutrients. For that reason, it's important to consume fiber supplements at least one hour after, or two hours before, taking medications and important vitamins. This can sometimes be minimized by starting with a small amount and slowly increasing until stools become softer and more frequent. Dosage and Preparation Fiber supplements often come in the form of powders meant to be mixed with water or another liquid. They also are available in capsule form, or as additives to foods like crackers, cookies, cereals, and bars. Dosage will vary based on the product and your desired effects. If you are healthy, it's generally recommended to start with a low dose of fiber and build up until you've reached optimum total daily fiber intake?roughly 25g for women and 38g for men?which should also include your dietary sources of fiber What to Look For When shopping for fiber, look closely at the ingredients to discover which form of fiber is used in each commercial brand. Also, if you're avoiding added sugar, salt, flavorings, or dyes, check the label for these common additives. If you're just starting with a fiber supplement, use a low dose and drink plenty of water when you take the supplement and throughout the day.? If you are not used to eating a high fiber diet/taking a supplement, start with about half of the recommended dose.? Always remember to take fiber with 8oz of water.? Continue at this dose for about 2-3 weeks, and then slowly increase up to the full dose arpit ly.? Fiber is a natural product- you can increase the dose to 2-4 times a day as needed to have a formed BM without straining. Increase the dose slowly until you reach either the desired total intake or a specific effect. Psyllium Psyllium is made from the seeds of a plant in the Plantago genus and contains about 70% soluble fiber and 30% insoluble fiber. It helps the stool absorb water and bulks it up, making?it easier to pass. It also breaks down in the gut (a process called fermentation) and becomes a food source for the good bacteria that reside there. Psyllium is used for treating constipation, irritable bowel syndrome (IBS), and diverticulosis. In addition, psyllium may lower cholesterol ?levels and provide some protection from heart disease.? On the downside, psyllium may cause intestinal gas and contains a small number of calories (roughly 20 calories per tablespoon). Psyllium is sold under the brand names Metamucil, Fiberall, Hydrocil, Konsyl, Perdiem, and Serutan. Methylcellulose Methylcellulose is a non-allergenic and non-fermentable fiber created from the cell reyes of plants. Instead of being absorbed by the intestinal tract, methylcellulose pulls in water to create a softer stool. Methylcellulose is often used to treat constipation, diverticulosis, IBS, and some causes of diarrhea. Because it does not ferment, it is less likely than psyllium to cause intestinal gas; however, methylcellulose does not feed healthy gut bacteria the way psyllium does. It can be used fur sewer but it should be noted that, because it can interfere with absorption, methylcellulose should be taken apart from any prescribed medications. Methylcellulose is sold under the brand name Citrucel. What are the best dietary sources of fiber? Whether or not you choose to supplement with fiber, it's still important to include a variety of high-fiber foods in your diet, such as: * Fresh fruit (pears, apples, strawberries, bananas) * Fresh vegetables (broccoli, Brussel sprouts, beets, and carrots) * Legumes (lentils, split peas, kidney beans, chickpeas, black beans, bey beans) * Whole Grains (quinoa, oats, brown rice, millet, barley) * Other food sources of fiber (popcorn, sweet potatoes, and desire) What time of day is best? Different manufacturers may have varying recommendations on when and how frequently to take fiber supplements. You may want to divide your daily dose into two or three portions to reduce bloating and gas that could occur when taking a large dose all at once. To avoid malabsorption, it's important to take medications or vitamins either one hour before, or two hours after, taking fiber supplements. If using a powdered form of fiber, be sure to dissolve it well. No matter what kind of fiber supplement you are using, be sure to drink plenty of water, at least 8ox, unless you are on fluid restrictions. Activity:: See above Diet:: See above Discharge Orders Discharge Orders: Discharge Order (Routine); Ordered 06/13/23 Ordered By: Marielena Morgan DS: Diagnosis Discharge Diagnosis (1) Tubular adenoma: Status: Acute Asessment and Plan: The patient is seen and examined after their colonoscopy.? The patient has been able to pass gas.? They are not having abdominal pain.? They have been able to tolerate liquids and a snack.? They do not have any nausea or vomiting.? They are not having any chest pain or shortness of breath.??? They are not having any rectal bleeding. Their vital signs have been stable-see nursing notes. We discussed findings during their colonoscopy, and any biopsies that were done/polyps that were removed. The patient will be sent a letter with any biopsy results, and when to repeat the colonoscopy.-see discharge instructions. Patient was given explicit instructions to follow-up regarding colonoscopy-refer to discharge instructions.? We reviewed resumption of medications. Patient verbalized understanding and discharged in stable and satisfactory condition- See nursing notes. (2) Personal history of breast cancer: Status: Acute (3) Acquired absence of both cervix and uterus: Status: Acute (4) Hyperlipidemia: Status: Acute (5) Essential hypertension: Status: Acute (6) Serrated adenoma of colon: Status: Acute (7) Tubular adenoma: Status: Acute (8) GERD (gastroesophageal reflux disease): Status: Chronic
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
--- NOTE | 2023-06-13 11:59 | W.COLOREPORT ---
Date of service: 06/13/23 Time of Service: 11:59 Colonoscopy Report Date of procedure: 06/13/23 Pre-op diagnosis general: Advanced adenomas Post-op diagnosis procedure note: same (and diverticula) Surgeon: Marielena Morgan Anesthesia Type: General:No Airway Estimated blood loss (mL): 2 Pathology: other Complications: None Disposition: same day Prep: Miralax/Dulcolax Retraction Time: 19 Procedure Description: After informed consent was obtained the patient was taken to the procedure room and placed in a left decubitous position. Monitors were applied and a time out was done. The patients name, date of , procedure, allergies to medications and metal in their body was reviewed. The patient was then sedated. Once sedated and comfortable a rectal exam was done. External exam was- minor hemorrhoids Internal exam revealed a normal sphincter tone and no palpable masses. The scope was then introduced and retrofelexed. Grade I internal hemorrhoids were identified. The scope was then advanced to the cecum w/out difficulty. The TI and appendiceal orifice were identified. The prep was BBPS 3 in all segments for a total of 9.. The scope was then slowly retracted over 19 minutes back into the rectum. She had a flat .5 cm polyp in the cecum x2, these are both removed with a cold biting forcep. She had a 0.75 cm polyp at 90 cm. This is removed with a cold biting forcep. She had a .5 cm flat polyp at 60 cm. This is removed with a cold biting forcep. All specimen is retrieved and no bleeding is noted. She had a few large mouth diverticula confined to the sigmoid colon. There is no signs of active bleeding or infection. The scope was removed and the patient was woken up and taken back to Same day surgery in stable condition. The patient tolerated the procedure well and there were no immediate complications. Follow up: The patient should follow up in 3-5 years unless they develop changes in bowel habits or other new gastrointestinal complaints.
[2023-06-13 12:02] VITALS: BMI 29.2
[2023-06-13] MEDS: Lactated Ringers 1,000 ML 80 ML IV (12:08)
--- NOTE | 2023-06-13 12:24 | BOWEL_PTH ---
PATIENT: Paula Portillo LOC: [facility] U#:[id number] AGE/SX: 58/F ROOM: RE06/13/[address]: Marielena Morgan : 1965 BED: DIS: 06/13/2023 SPEC #: [id number] RECD: 06/13/23 17:14 STATUS: DANEILA RE #: [id number] [place]: 06/13/23 12:[address]: Marielena Morgan DEPT: Surgical Specimen RECD BY: Adeola Perkins ENTERED: 06/13/23 17:19 SP TYPE: Bowel OTHR DR: Nick Schneider DNP Tissues: 1 - BIOPSY BOWEL 2 - BIOPSY BOWEL 3 - BIOPSY BOWEL Procedures: GROSS AND MICRO LEVEL 4 Comments: [id number]
[2023-06-13 12:50] VITALS: BP 116/64; PULSE 74; RESP 18; TEMP 36.4; O2SAT 95
[2023-06-13 13:23] VITALS: BP 127/89; PULSE 64; RESP 16; TEMP 36.6; O2SAT 98
--- NOTE | 2023-06-13 13:54 | W.ANESPOSTOP ---
Postoperative Evaluation Date, Time and Location Date Performed: 06/13/23 Time Performed: 13:27 Patient Location: Day Surgery Unit Vital Signs Most Recent Imported Vital Signs: Most Recent Vital Signs Temp Pulse Resp BP Pulse Ox 36.6 C 64 16 127/89 98 06/13/23 13:23 06/13/23 13:23 06/13/23 13:23 06/13/23 13:23 06/13/23 13:23 Pain Score Most Recent Pain Score: Most Recent Pain Score Pain Level 0 06/13/23 13:23 Assessment Mental Status: Awake (Alert & Oriented to Patient Baseline) Airway and Respiratory Function: Patent airway with normal (patient baseline) respiratory exam Cardiovascular Function: Hemodynamically Stable Hydration Status: Adequately Hydrated Nausea & Vomiting: No Nausea or Vomiting Pain: Pt. Denies Any Pain Peripheral Nerve Block: Patient did not receive a nerve block
== END 2023-06-13 14:00 | disposition home or self-care (01) ==
PROVIDERS: PCP Nurse Practitioner Family; Visit Provider Surgery
PROC: 0DJD8ZZ Inspection of Lower Intestinal Tract, Via Natural or Artificial Opening Endoscopic (ICD-10-PCS; CPT 45378; principal; 2023-06-13 12:00)
DX: D12.0 Benign neoplasm of cecum; I10 Essential (primary) hypertension; K21.9 Gastro-esophageal reflux disease without esophagitis; Z85.3 Personal history of malignant neoplasm of breast; Z90.710 Acquired absence of both cervix and uterus; D12.3 Benign neoplasm of transverse colon; D12.4 Benign neoplasm of descending colon; Z12.11 Encounter for screening for malignant neoplasm of colon
CPT/HCPCS: 45380; 88305; J2001; J2405

== ENCOUNTER 2023-12-22 12:36 | Outpatient (CLI) | payer OTHER, SELFPAY ==
[2023-12-22 13:16] LABS: BUN 14 mg/dL (7-18); Calcium 9.1 mg/dL (8.5-10.1); Chloride 104 mmol/L (98-107); Glucose 110 mg/dL (74-106); Potassium 3.3 mmol/L (3.5-5.1); Sodium 143 mmol/L (136-145)
[2023-12-22 23:17] LABS: Hepatitis C Ab w Rflx HCV PCR Negative (Negative)
[2023-12-22 23:36] LABS: HIV-1/2 Ag & Ab Screen Negative (Negative)
== END 2023-12-22 12:37 | disposition home or self-care (01) ==
LOC: LBO 12:37
PROVIDERS: PCP Nurse Practitioner Family; Visit Provider Nurse Practitioner Family
DX: Z11.4 Encounter for screening for human immunodeficiency virus [HIV] (principal); I10 Essential (primary) hypertension; Z11.59 Encounter for screening for other viral diseases
CPT/HCPCS: 36415; 80048; 86803; 87389

== ENCOUNTER → 2024-01-04 00:14 | Outpatient (CLI) | payer OTHER, SELFPAY ==
--- NOTE | 2024-01-04 | DI.MAMMO_ITS ---
Exam(s) MG MAMMO SCREENING 60 MIN DUR EXAM: MG MAMMO SCREENING 60 MIN DUR CLINICAL HISTORY: Z12.39 breast cancer screening,HX OF BREAST CANCER. TECHNIQUE: Craniocaudal and mediolateral oblique Full Field Digital Mammography views of the right b reast with Computer Aided Diagnosis. COMPARISON: Comparison is made with prior examinations. FINDINGS: Mammography/Tomosynthesis: The patient is status post left mastectomy. Masses/Architectural Distortion: None seen. Microcalcifictions: No suspicious pleomorphic-type are seen. Skin Thickening/Nipple Retraction: None. IMPRESSION: 1. No evidence of malignancy is noted. 2. Unless there is more urgent need, follow-up screening mammography is recommended, as per [place] [employer] guidelines. 3. The findings were discussed with the patient on the date of the examination. BI-RADS Category 1 - Negative Breast Density - Category B - Scattered areas of fibroglandular density Breast density Category C or D implies that the patient has dense breast tissue. Dense breast tissue can make it harder to find cancer on a mammogram. Dense breast tissue is also associated with an incr eased risk of breast cancer. This information about the result of the mammogram report was provided to the patient to raise their awareness. Use this report when you speak with the patient about their risks for breast cancer, which includes their family history. At that time, you may recommend additional screening tests (Ultrasoun d or MRI) as these tests may add significant information. A negative radiographic report should not delay biopsy if a dominant or clinically suspicious mass is present. Up to ten percent of cancers are not identified on mammography. A negative report may reinforce clinical impression. Adenosis and dense breasts may obscure an underlying neoplasm. False positive reports average 6 to 10%. Patient will receive a letter notifying them of these results.
== END ==
PROVIDERS: PCP Nurse Practitioner Family; Visit Provider Nurse Practitioner Family
DX: Z12.31 Encounter for screening mammogram for malignant neoplasm of breast (principal)
CPT/HCPCS: 77063; 77067

== ENCOUNTER 2024-04-30 13:52 | Outpatient (REF) | payer OTHER, SELFPAY ==
--- NOTE | 2024-04-30 13:15 | PAPFT_PTH ---
PATIENT: Paula Portillo LOC: [facility] U#:[id number] AGE/SX: 59/F ROOM: RE04/30/[address]: Jyothi Niño DO : 1965 BED: DIS: 04/30/2024 SPEC #: [id number] RECD: 04/30/24 17:24 STATUS: DANIELA RE #: [id number] [place]: 04/30/24 13:[address]: Jyothi Niño DEPT: [facility] Cytology RECD BY: Adeola Perkins ENTERED: 04/30/24 17:24 SP TYPE: PAPFT OTHR DR: Nick Schneider DNP Tissues: 1 - CX/ENDOCX FOR PAP SMEARS Procedures: PAP THIN PREP/[facility] Screening HPV DNA PROBE Comments: [id number] (HPV 16 & 18/45)
== END 2024-04-30 13:53 | disposition home or self-care (01) ==
LOC: LBN 13:52
PROVIDERS: PCP Nurse Practitioner Family; Visit Provider Obstetrics & Gynecology
DX: R30.0 Dysuria (principal); B96.29 Other Escherichia coli [E. coli] as the cause of diseases classified elsewhere
CPT/HCPCS: 87077; 88142; 87086; 87186; 87624

== ENCOUNTER 2024-12-23 18:45 | Outpatient (REF) | payer OTHER, SELFPAY ==
[2024-12-23 21:09] LABS: Abs Immature Grans 0.01 10^3/uL (0.0-0.06); Absolute Basophil Count 0.03 10^3/uL (0.0-0.2); Absolute Eosinophil Count 0.11 10^3/uL (0.0-0.7); Absolute Lymphocyte Count 2.34 10^3/uL (1.2-3.4); Absolute Monocyte Count 0.73 10^3/uL (0.1-0.8); Absolute Neutrophil Count 3.44 10^3/uL (1.2-6.7); Basophils % 0.5 %; Eosinophils % 1.7 %; HCT 40.4 % (36.0-46.0); HGB 13.4 g/dL (11.2-15.7); Immature Grans % 0.2 %; Lymphocytes % 35.1 %; MCHC 33.2 % (32.0-36.0); MCV 91 fL (80-95); MPV 10.8 fL (8.0-11.0); Neutrophils % 51.5 %; Platelet Count 298 10^3/uL (130-400); RBC 4.46 10^6/uL (3.93-5.22); RDW 13.2 % (11.7-14.6); RDW-SD 43.8 fL; WBC 6.66 10^3/uL (4.4-10.8)
[2024-12-23 21:16] LABS: Uric Acid 7.1 mg/dL (2.6-6.0)
== END 2024-12-23 18:46 | disposition home or self-care (01) ==
LOC: LBN 18:45
PROVIDERS: PCP Nurse Practitioner Family; Visit Provider Nurse Practitioner Family
DX: M79.675 Pain in left toe(s) (principal)
CPT/HCPCS: 84550; 85025

== ENCOUNTER 2025-03-03 12:55 | Outpatient (CLI) | payer OTHER, SELFPAY ==
[2025-03-03 11:49] LABS: ALT 30 U/L (14-59); AST 16 U/L (15-37); Albumin 4.0 g/dL (3.4-5.0); Alkaline Phosphatase 89 U/L (46-116); Anion Gap 8.8 mmol/L (3-11); BUN 16 mg/dL (7-18); Bilirubin, Total 0.5 mg/dL (0.2-1.0); CO2 28.2 mmol/L (21.0-32.0); Calcium 8.9 mg/dL (8.5-10.1); Calculated LDL 147 mg/dL (<100); Chloride 102 mmol/L (98-107); Cholesterol 218 mg/dL (<200); Estimated GFR 98.95 (mL/min/1.73m2); Glucose 103 mg/dL (74-106); HDL Cholesterol 46 mg/dL (>or=50); Potassium 3.4 mmol/L (3.5-5.1); Sodium 139 mmol/L (136-145); Total Protein 7.6 g/dL (6.4-8.2); Triglyceride 125 mg/dL (<150)
[2025-03-03 18:44] LABS: HBs Antibody, Quant <3.1 mIU/mL (See Note); Hepatitis B Surface Antigen Negative (Negative)
== END 2025-03-03 12:56 | disposition home or self-care (01) ==
LOC: LBO 12:58
PROVIDERS: PCP Nurse Practitioner Family; Visit Provider Nurse Practitioner Family
DX: E78.5 Hyperlipidemia, unspecified (principal); Z11.59 Encounter for screening for other viral diseases
CPT/HCPCS: 36415; 80053; 80061; 86704; 86706; 87340

== ENCOUNTER 2025-03-31 01:31 | Outpatient (CLI) | payer OTHER, SELFPAY ==
--- NOTE | 2025-03-31 07:00 | DI.MAMMO_ITS ---
Exam(s) MG MAMMO SCREENING 60 MIN DUR EXAM: MG MAMMO SCREENING 60 MIN DUR CLINICAL HISTORY: breast cancer screening, personal h/o breast ca,z85.3. TECHNIQUE: Craniocaudal and mediolateral oblique Full Field Digital Mammography views of the right breast with Computer Aided Diagnosis. COMPARISON: Comparison is made with prior examinations. FINDINGS: The patient is status post left mastectomy. Mammography/Tomosynthesis: Masses/Architectural Distortion: There are no suspicious masses or areas of architectural distortion present. Microcalcifictions: No suspicious pleomorphic-type are seen. Skin Thickening/Nipple Retraction: None. IMPRESSION: 1. No evidence of malignancy is noted. 2. Unless there is more urgent need, follow-up screening mammography is recommended, as per [place] [employer] guidelines. 3. The findings were discussed with the patient on the date of the examination. BI-RADS Category 1 - Negative Breast Density - Category B - There are scattered areas of fibroglandular density. Breast density Category C or D implies that the patient has dense breast tissue. Dense breast tissue can make it harder to find cancer on a mammogram. Dense breast tissue is also associated with an increased risk of breast cancer. This information about the result of the mammogram report was provided to the patient to raise their awareness. Use this report when you speak with the patient about their risks for breast cancer, which includes their family history. At that time, you may recommend additional screening tests (Ultrasound or MRI) as these tests may add significant information. A negative radiographic report should not delay biopsy if a dominant or clinically suspicious mass is present. Up to ten percent of cancers are not identified on mammography. A negative report may reinforce clinical impression. Adenosis and dense breasts may obscure an underlying neoplasm. False positive reports average 6 to 10%. Patient will receive a letter notifying them of these results.
== END 2025-03-31 01:51 ==
LOC: DI 01:31
PROVIDERS: PCP Nurse Practitioner Family; Visit Provider Nurse Practitioner Family
DX: Z85.3 Personal history of malignant neoplasm of breast (principal); Z12.31 Encounter for screening mammogram for malignant neoplasm of breast; R92.323 Mammographic fibroglandular density, bilateral breasts
CPT/HCPCS: 77063; 77067